=== PATIENT | female | born 1950 | race Hispanic/Latino ===

== ENCOUNTER → 2018-05-22 | Outpatient (CLI) | payer MEDICARE | END | disposition home or self-care (01) | LOC: RAH 13:35 | PROVIDERS: ATTEND Internal Medicine | DX: M47.896 Other spondylosis, lumbar region (principal) | CPT/HCPCS: 72100 ==

== ENCOUNTER 2018-08-01 09:01 | Emergency (ER) | payer MEDICARE ==
[2018-08-01] MEDS ORDERED: ASPIRIN 325 MG TABLET ONE (09:40)
[2018-08-01] MEDS ORDERED: KETOROLAC TROMETHAMINE 30MG/ML ONE (09:41)
[2018-08-01 09:52] LABS: BASOPHILS % (AUTO) 0.6 % (0.0-5.0); EOSINOPHILS % (AUTO) 2.6 % (0.0-8.0); HEMATOCRIT 44.5 % (36-48); LYMPHOCYTES % (AUTO) 27.6 % (21.0-51.0); MEAN CORPUSCULAR HEMOGLOBIN 29.1 pg (27.0-33.0); MEAN CORPUSCULAR HGB CONC 32.7 g/dL (32.0-36.0); MEAN CORPUSCULAR VOLUME 88.9 fL (79-99); MONOCYTES % (AUTO) 8.3 % (3.0-13.0); NEUTROPHILS % (AUTO) 60.9 % (40.0-77.0); PLATELET COUNT (AUTO) 241 K/uL (130-400); RED BLOOD CELL COUNT(AUTO) 5.01 MIL/uL (4.00-5.50); RED CELL DISTRIBUTION WIDTH 13.3 % (11.0-15.5); WHITE BLOOD COUNT (AUTO) 7.8 K/uL (4.8-10.8)
[2018-08-01 10:00] LABS: CREATININE 0.7 mg/dL (0.5-1.5); POTASSIUM 4.2 mmol/L (3.5-5.1)
[2018-08-01 10:15] LABS: ALBUMIN 3.8 g/dL (3.5-5.0); BILIRUBIN,TOTAL 0.6 mg/dL (0.2-1.0); CREATINE KINASE MB 0.5 ng/mL (0.5-3.6); TOTAL PROTEIN, SERUM 7.6 g/dL (6.0-8.3)
[2018-08-01 10:20] LABS: B-TYPE NATRIURETIC PEPTIDE 88 pg/mL (0-100)
[2018-08-01] MEDS ORDERED: IOHEXOL-350 75 ML VIAL IV ONE (11:51)
== END 2018-08-01 13:13 | disposition home or self-care (01) ==
LOC: EDH 09:01
DX: R07.89 Other chest pain (principal); E11.9 Type 2 diabetes mellitus without complications; K21.9 Gastro-esophageal reflux disease without esophagitis; E78.5 Hyperlipidemia, unspecified; I10 Essential (primary) hypertension; Z85.3 Personal history of malignant neoplasm of breast
CPT/HCPCS: 36415; 71045; 71275; 80053; 82550; 82553; 83880; 84484; 85025; 85378; 93005; 94761; 96374; 99285; J1885; Q9967

== ENCOUNTER → 2018-12-29 | Outpatient (CLI) | payer OTHER, MEDICARE | END | disposition home or self-care (01) | LOC: LAB 09:31 | PROVIDERS: ATTEND Internal Medicine | DX: M79.605 Pain in left leg (principal); Z85.3 Personal history of malignant neoplasm of breast | CPT/HCPCS: 73590 ==

== ENCOUNTER → 2019-07-15 | Outpatient (CLI) | payer OTHER, MEDICARE | END | disposition home or self-care (01) | LOC: RAH 11:04 | PROVIDERS: ATTEND Internal Medicine | DX: M19.011 Primary osteoarthritis, right shoulder (principal) | CPT/HCPCS: 73030 ==

== ENCOUNTER 2021-03-17 17:14 | Emergency (ER) | payer OTHER, MEDICARE ==
[2021-03-17] MEDS ORDERED: KETOROLAC TROMETHAMINE 30MG/ML ONE (17:56)
[2021-03-17] MEDS ORDERED: HYDROCODONE/ACETAMINOPHEN 10/325 MG TAB ONE (17:56)
== END 2021-03-17 18:16 | disposition home or self-care (01) ==
LOC: EDH 17:14
DX: M17.12 Unilateral primary osteoarthritis, left knee (principal); M25.562 Pain in left knee; E11.9 Type 2 diabetes mellitus without complications; K21.9 Gastro-esophageal reflux disease without esophagitis; E78.5 Hyperlipidemia, unspecified; I10 Essential (primary) hypertension
CPT/HCPCS: 73562; 96372; 99283; J1885

== ENCOUNTER → 2021-04-20 | Outpatient (CLI) | payer OTHER, MEDICARE | END | disposition home or self-care (01) | LOC: RAH 08:21 | PROVIDERS: ATTEND Internal Medicine | DX: R60.0 Localized edema (principal); M71.22 Synovial cyst of popliteal space [Baker], left knee | CPT/HCPCS: 93971 ==

== ENCOUNTER → 2021-04-21 | Outpatient (CLI) | payer OTHER, MEDICARE | END | disposition home or self-care (01) | LOC: RAH 11:39 | PROVIDERS: ATTEND Internal Medicine | DX: M71.22 Synovial cyst of popliteal space [Baker], left knee (principal); M17.12 Unilateral primary osteoarthritis, left knee; M25.762 Osteophyte, left knee | CPT/HCPCS: 73562 ==

== ENCOUNTER → 2023-11-26 | Outpatient (CLI) | payer OTHER, MEDICARE | END | disposition home or self-care (01) | LOC: RAH 09:37 | PROVIDERS: ATTEND Internal Medicine | DX: R05.3 Chronic cough (principal) | CPT/HCPCS: 71047 ==

== ENCOUNTER 2024-07-30 15:13 | Emergency (ER) | payer OTHER, MEDICARE ==
[~2024-07-30] VITALS: Ht 162.6 cm; Wt 72.6 kg
[2024-07-30 16:08] LABS: BASOPHILS # (AUTO) 0.01 K/uL (0.00-0.20); BASOPHILS % (AUTO) 0.1 % (0.0-5.0); EOSINOPHILS # (AUTO) 0.02 K/uL (0.00-0.70); EOSINOPHILS % (AUTO) 0.2 % (0.0-8.0); HEMATOCRIT 39.8 % (36-48); IMMATURE GRANULOCYTE ABSOLUTE 0.18 K/uL (0-1); LYMPHOCYTES # (AUTO) 2.2 K/uL (1.0-4.8); LYMPHOCYTES % (AUTO) 25.9 % (21.0-51.0); MEAN CORPUSCULAR HEMOGLOBIN 30.5 pg (27.0-33.0); MEAN CORPUSCULAR HGB CONC 33.4 g/dL (32.0-36.0); MEAN CORPUSCULAR VOLUME 91.3 fL (79-99); MONOCYTES # (AUTO) 1.4 K/uL (0.1-1.0); MONOCYTES % (AUTO) 15.8 % (3.0-13.0); NEUTROPHILS # (AUTO) 4.8 K/uL (1.8-7.7); NEUTROPHILS % (AUTO) 55.9 % (40.0-77.0); PLATELET COUNT (AUTO) 140 K/uL (130-400); RED BLOOD CELL COUNT(AUTO) 4.36 MIL/uL (4.00-5.50); RED CELL DISTRIBUTION WIDTH 13.6 % (11.0-15.5); WHITE BLOOD COUNT (AUTO) 8.6 K/uL (4.8-10.8)
[2024-07-30 16:18] LABS: CREATININE 0.8 mg/dL (0.5-1.0); POTASSIUM 3.9 mmol/L (3.5-5.1)
[2024-07-30 18:13] VITALS: BP 158/80; PULSE 70; RESP 16; TEMP 98; O2SAT 98
== END 2024-07-30 18:15 | disposition home or self-care (01) ==
LOC: EDH 15:13
DX: E11.65 Type 2 diabetes mellitus with hyperglycemia (principal); I10 Essential (primary) hypertension; E11.40 Type 2 diabetes mellitus with diabetic neuropathy, unspecified; E78.00 Pure hypercholesterolemia, unspecified; R20.2 Paresthesia of skin; Z98.890 Other specified postprocedural states
CPT/HCPCS: 36415; 80048; 84484; 85025; 93005

== ENCOUNTER → 2024-08-27 | Outpatient (CLI) | payer OTHER, MEDICARE | END | disposition home or self-care (01) | LOC: RAH 12:59 | PROVIDERS: ATTEND Internal Medicine | DX: R00.0 Tachycardia, unspecified (principal); R06.09 Other forms of dyspnea | CPT/HCPCS: 93306; 93356 ==

== ENCOUNTER → 2024-09-14 | Outpatient (CLI) | payer OTHER, MEDICARE ==
[2024-09-14 16:58] LABS: ALBUMIN 3.8 g/dL (3.5-5.0); BILIRUBIN,TOTAL 0.4 mg/dL (0.2-1.0); CREATININE 0.9 mg/dL (0.5-1.0); POTASSIUM 5.1 mmol/L (3.5-5.1); TOTAL PROTEIN, SERUM 7.6 g/dL (6.0-8.3)
== END | disposition home or self-care (01) ==
LOC: LAB 13:34
PROVIDERS: ATTEND Student in an Organized Health Care Education/Training Program
DX: R00.2 Palpitations (principal)
CPT/HCPCS: 36415; 80053

== ENCOUNTER → 2024-09-30 | Outpatient (CLI) | payer OTHER, MEDICARE ==
[~2024-09-30] MED LIST: IOHEXOL 350 MG/ML 100ML INFUS..BTL IV ONE
--- NOTE | 2024-09-30 10:43 | HMCIMG ---
CT CARDIAC ANGIO W/CONT. CCTA REASON: CHEST PAIN COMPARISON: None TECHNIQUE: Images are obtained through the heart in the axial plane before and during bolus IV contrast infusion, 100 cc Omnipaque 350. 2-D and 3-D multiplanar reconstruction images were then performed. The injection had to be repeated once due to motion artifact on the first sequence, total contrast volume was 200 cc. FINDINGS: This dictation is for the noncardiac findings only. Cardiac and coronary artery findings are reported separately. Visualized portions of the lungs are clear. There is normal-appearing pulmonary interstitium. There is no hilar or mediastinal lymphadenopathy. Chest wall structures appear unremarkable. IMPRESSION: 1. Unremarkable noncardiac portions of CT cardiac angiography.
== END | disposition home or self-care (01) ==
LOC: RAH 07:21
PROVIDERS: ATTEND Student in an Organized Health Care Education/Training Program
DX: R07.9 Chest pain, unspecified (principal)
CPT/HCPCS: 75574; Q9967

== ENCOUNTER → 2024-11-16 | Outpatient (CLI) | payer OTHER, MEDICARE ==
[2024-11-16 12:43] LABS: CHOLESTEROL 144 mg/dL (<200); HDL CHOLESTEROL 46 mg/dL (35-85); LDL DIRECT 95 mg/dL (0-99); TRIGLYCERIDES 77 mg/dL (30-200)
== END | disposition home or self-care (01) ==
LOC: LAB 08:57
PROVIDERS: ATTEND Student in an Organized Health Care Education/Training Program
DX: E78.2 Mixed hyperlipidemia (principal)
CPT/HCPCS: 36415; 80061

== ENCOUNTER 2024-12-12 12:16 | Emergency (ER) | payer OTHER, MEDICARE ==
[~2024-12-12] VITALS: Ht 149.9 cm; Wt 66.7 kg
--- NOTE | 2024-12-12 12:51 | ERN ---
General Chief Complaint: Generalized Body Aches Stated Complaint: BODY ACHES Time Seen by MD: 12:19 History of Present Illness Initial Comments 74-year-old female history of osteoarthritis presents for right shoulder pain right wrist pain and bilateral hip pain. Patient reports she was has been arthritis flare-ups recently. She has been taking Tylenol. She has been to her PCP and received injections which were briefly resolve his symptoms but they have returned. She denies any falls or injuries. She has been worked up for this in the past. She denies any systemic signs or symptoms. Allergies: Coded Allergies: No Known Allergies (Unverified Allergy, Unknown, 12/12/24) Past Medical History Past Medical History: No Pertinent History, Cancer Past Surgical History: Other Surgical History Other: LT MASTECTOMY Female( History) History: Not Applicable ROS Dictation CONSTITUTIONAL: No chills, no fever, no weakness, no diaphoresis, no malaise. HEAD/FACE: No signs of trauma. EENT: No eye pain, no blurred vision, no tearing, no double vision, no ear pain, no ear discharge, no nose pain, no nasal congestion, no throat pain, no throat swelling, no mouth pain. RESPIRATORY: No cough, no orthopnea, no SOB, no stridor, no wheezing. CARDIOVASCULAR: No chest pain, no edema, no palpitations, no syncope. GASTROINTESTINAL/ABDOMINAL: No abdominal pain, no constipation, no diarrhea, no nausea, no vomiting. GENITOURINARY: No abnormal discharge, no dysuria, no frequent urination, no hematuria. No complaints of pain in the genitals. MUSCULOSKELETAL: Joint pain INTEGUMENTARY: No change in color, no change in hair/nails, no dryness, no lesion, no lumps, no rash. NEUROLOGICAL/PSYCH: No anxiety, not depressed, no emotional problem, no headache, no numbness, no pre-existing deficit, no history of seizures, no tremors, no weakness. HEMATOLOGIC/LYMPHATIC: Not anemic, no history of blood clots, no apparent bleeding, no bruising, glands not swollen. All Systems Negative, Except as Noted. Physical Exam Physical Exam Dictation VITAL SIGNS: Reviewed. GENERAL APPEARANCE: Alert, oriented x3, no acute distress. HEAD AND FACE: Non-traumatic. EYES: PERRL, pink conjunctivas, eyelid no trauma, anterior chamber clear. EARS: Pinnas intact and no signs of trauma or erythema. Ear canals clear and no discharge. TMs no erythema. NOSE: No discharge, no bleeding. OROPHARYNX: Mouth normal, teeth no caries, tongue pink. Pharynx clear, no erythema. Tonsils no exudates, no abscesses noted. Mucous membrane moist. NECK: Supple, non-tender, no thyromegaly, no masses, no JVD, no bruits. BREAST: Deferred. CHEST: No tenderness, no crepitus, no paradoxical movement, no retractions. LUNGS: Clear, well-ventilated, symmetric, no rales, no wheezing, no rhonchi, no stridor, good breath sounds bilaterally. HEART: Regular rate, regular rhythm, no murmur, no gallops. VASCULAR: No peripheral edema. ABDOMEN: Soft, positive bowel sounds, nondistended, no guarding, nontender, no rebound, no masses no hepatomegaly, no splenomegaly, no Harmon's sign, no hernias. RECTAL: Deferred. GENITAL: Deferred. NEUROLOGICAL: Normal speech, gross motor function intact, gross sensory function intact. MUSCULOSKELETAL: Neck nontender, full range of motion, back nontender, full range of motion. EXTREMITIES: Nontender, full range of motion. SKIN: Color pink, dry, no turgor, no rash, no lacerations, no abrasions, no contusions. LYMPHATICS: Deferred. MDM CC: Joint pain, mostly in her right shoulder, right wrist bilateral hips. Historian: Patient Comorbidities: Advanced age, osteoarthritis, breast cancer status post mastectomy Limitations by social determinants of health: None differential diagnosis: Your osteoarthritis No labs or imaging indicated Clinical exam is consistent with arthritis. Strong extend the shoulder. Given an IM Toradol and p.o. Hudson. We will DC with meloxicam recommend Tylenol recommend Voltaren gel and lidocaine patches in capsaicin as needed. Recommend follow up with the PCP. ED Course Orders Procedure Category Date Status Time Ketorolac PHA 12/12/24 In Process Tromethamine 15mg/Ml 13:00 Hydrocodone/Apap PHA 12/12/24 In Process 5/325 (Hudson 5/325mg) 13:00 Current Medications Medications (Trade) Dose Ordered Sig/Esteban Route PRN Reason Start Time Stop Time Status Last Admin Dose Admin Acetaminophen/ Hydrocodone Bitart (NORco 5/325MG) 1 tab ONCE ONCE PO 12/12/24 13:00 12/12/24 13:01 Ketorolac Tromethamine (toRADol) 15 mg ONCE ONCE IM 12/12/24 13:00 12/12/24 13:01 Vital Signs Date Time Temp Pulse Resp B/P (MAP) Pulse Ox O2 Delivery O2 Flow Rate FiO2 12/12/24 12:41 97.9 98 18 166/63 97 Room Air DX & DISP Disposition: Discharge Departure Impression: Primary Impression: Osteoarthritis Condition: Stable Scripts Diclofenac Sodium (Voltaren Arthritis Pain) 1 % Gel..gram. 20 GM TP TID for pain, #1 TUB Prov: DARREN FERRER DO 12/12/24 Meloxicam (Meloxicam) 15 Mg Tablet 15 MG PO DAILY PRN for PAIN for 20 Days, #20 TAB Prov: DARREN FERRER DO 12/12/24 Additional Instructions: Your symptoms are consistent with osteoarthritis. You received a dose of Toradol, which is a nonsteroidal anti-inflammatory medication. You also received a Hudson tab. Continue taking 1000 mg of Tylenol up to 4 times per day. This medication is [id number]. I have prescribed meloxicam, which is an anti-inflammatory pain medication. Take this once per day as needed. I recommend Voltaren gel. You can apply this over the joints up to 3 times per day as needed. You can apply warm compresses for stiffness to the affected joints or cold packs for inflammation. Please follow up with the primary doctor. Return to the emergency department as needed. Referrals: JOSE LY MD (PCP) DARREN FERRER DO Dec 12, 2024 12:51
[2024-12-12] MEDS ORDERED: MELO-108 PO (12:55)
[2024-12-12] MEDS ORDERED: DICL20GE TP (12:55)
[2024-12-12] MEDS: ketOROlac 15MG/ML VIAL (15MG/ML) IM ONE (13:00)
[2024-12-12] MEDS: HYDROcodone/APAP 5/325 1 TAB TABLET PO ONE (15:10)
--- NOTE | 2024-12-12 15:13 | NUR ---
ASSUMED CARE AT THIS TIME
[2024-12-12 15:25] VITALS: BP 150/67; PULSE 89; RESP 18; TEMP 98.2; O2SAT 98
== END 2024-12-12 15:26 | disposition home or self-care (01) ==
LOC: EDH 12:16
DX: M19.90 Unspecified osteoarthritis, unspecified site (principal); Z90.12 Acquired absence of left breast and nipple; Z98.890 Other specified postprocedural states
CPT/HCPCS: 99283; 96372; J1885

== ENCOUNTER 2025-01-04 16:46 | Emergency (ER) | payer OTHER, MEDICARE ==
[~2025-01-04] VITALS: Ht 152.4 cm; Wt 65.3 kg
[~2025-01-04 16:46] MED LIST changes: +DICL20GE TP; -IOHEXOL 350 MG/ML 100ML INFUS..BTL IV ONE; +MELO-108 PO
--- NOTE | 2025-01-04 17:27 | EKG ---
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
--- NOTE | 2025-01-04 17:34 | ERN ---
ED Note History of Present Illness Stated Complaint: VOMIT Chief Complaint: Nausea,Vomiting,Diarrhea Time Seen by MD: 16:50 Dictation: The patient is a 74-year-old female with a medical history of type 2 diabetes mellitus and breast cancer, for which she underwent a mastectomy, presented to the emergency department with primary complaints of vomiting that began this afternoon, accompanied by weakness. The patient reported vomiting five times today, with associated nausea. She described experiencing cramping abdominal pain during episodes of vomiting, as well as headaches. She denied experiencing diarrhea, dizziness, lightheadedness, hematemesis, or hematochezia. Denies any history of similar complaints before. Additionally, she stated that she has not consumed spicy foods or eaten outside. A colonoscopy performed a month ago yielded normal results. Allergies: Coded Allergies: No Known Allergies (Unverified Allergy, Unknown, 12/12/24) Home Meds Active Scripts Diclofenac Sodium (Voltaren Arthritis Pain) 1 % Gel..gram., 20 GM TP TID for pain, #1 TUB Prov:DARREN FERRER DO 12/12/24 Meloxicam (Meloxicam) 15 Mg Tablet, 15 MG PO DAILY PRN for PAIN for 20 Days, #20 TAB Prov:DARREN FERRER DO 12/12/24 Past Medical History Past Medical History: No Pertinent History, Arthritis, Cancer, Diabetes-Type II, Hypertension Surgical History: Other Surgical History Other: LT MASTECTOMY History: Not Applicable Review of System Dictation REVIEW OF SYSTEMS CONSTITUTIONAL: Generalized bodyaches, Denies fevers, chills, or night sweats. No unintentional weight loss reported. NEUROLOGICAL: Denies headache, amaurosis fugax, motor weakness, sensory deficit, vertigo/spinning sensation, gait abnormalities, or tremors. ENT: No hearing loss, otalgia, otorrhea, rhinitis, rhinorrhea, hoarseness, or sore throat. CARDIOVASCULAR: Denies any exertional angina, dyspnea on exertion, orthopnea, paroxysmal nocturnal dyspnea, palpitations, life-threatening arrhythmias, claudication. PULMONARY: Denies any shortness of breath, cough, phlegm/sputum, hemoptysis, pleuritic chest pain. SLEEP: Denies morning headaches, daytime somnolence or napping. Denies difficulty falling asleep, staying asleep, waking from sleep. Denies knowledge of snoring. GASTROINTESTINAL: c/o nausea, vomiting, Denies any type of dysphagia to either liquids or solids. Denies pyrosis, early satiety, abdominal pain, diarrhea, constipation, or changes in stool consistency or caliber. Denies coffee-ground emesis, hematemesis, hematochezia, or melanotic stools. GENITOURINARY: Denies frequency, urgency, nocturia, hematuria or incontinence (Storage/Irritative symptoms.) Low urinary stream, straining to void, urinary intermittency or hesitancy, splitting of the voiding stream, terminal dribbling. ENDOCRINOLOGIC: Denies polyuria, polydipsia, polyphagia or heat/cold intolerances. HEMATOLOGIC: Denies thrombophilia/previous clots, or coagulopathy/bleeding disorders. ONCOLOGIC: Denies personal history of malignancy. DERMATOLOGIC: Denies rashes or pruritus. PSYCHIATRIC: Denies any suicidal or homicidal ideation. Denies hallucinations. Initial Vital Sign VS Vital Signs Date Time Temp Pulse Resp B/P (MAP) Pulse Ox O2 Delivery O2 Flow Rate FiO2 01/04/25 16:55 98.6 129 22 129/76 Room Air 0 Physical Exam Dictation PHYSICAL EXAM GENERAL APPEARANCE: The patient is awake, alert, and oriented, appears in some distress. NEUROLOGICAL: Cranial nerves II-XII grossly intact. Motor is 5/5 in bilateral upper and lower extremities proximal to distal. No sensory deficits. HEENT: Face is symmetric. Pupils are equal and reactive. Extraocular movements are intact. NECK: Supple. No JVD. No thyromegaly. No submental, submandibular, pre- /postauricular, occipital or supraclavicular lymphadenopathy. CHEST: Normal chest expansion. No Telemetry. LUNGS: Absence of any rales, rhonchi or any wheezing. CARDIOVASCULAR: Regular. S1 and S2 normal. No appreciable rubs, murmurs or gallops. ABDOMEN: Soft, nontender, and nondistended. There is no rebound, voluntary guarding, or rigidity. : Deferred. No Girard. EXTREMITIES: Non-edematous and not cyanotic. No clubbing. Good capillary refill. SKIN: No skin breakdown. Results (Laboratory/Radiology) Laboratory/Radiology Laboratory Tests Test 01/04/25 17:35 White Blood Count 13.0 K/uL (4.8-10.8) H Red Blood Count 4.46 MIL/uL (4.00-5.50) Hemoglobin 12.5 g/dL (12.0-16.0) Hematocrit 38.3 % (36-48) Mean Corpuscular Volume 85.9 fL (79-99) Mean Corpuscular Hemoglobin 28.0 pg (27.0-33.0) Mean Corpuscular Hemoglobin Concent 32.6 g/dL (32.0-36.0) Red Cell Distribution Width 13.4 % (11.0-15.5) Platelet Count 334 K/uL (130-400) Mean Platelet Volume 10.8 fL (7.5-10.5) H Immature Granulocyte % (Auto) 1.4 % (0-1) H Neutrophils (%) (Auto) 63.1 % (40.0-77.0) Lymphocytes (%) (Auto) 16.3 % (21.0-51.0) L Monocytes (%) (Auto) 15.9 % (3.0-13.0) H Eosinophils (%) (Auto) 2.8 % (0.0-8.0) Basophils (%) (Auto) 0.5 % (0.0-5.0) Neutrophils # (Auto) 8.2 K/uL (1.8-7.7) H Lymphocytes # (Auto) 2.1 K/uL (1.0-4.8) Monocytes # (Auto) 2.1 K/uL (0.1-1.0) H Eosinophils # (Auto) 0.36 K/uL (0.00-0.70) Basophils # (Auto) 0.06 K/uL (0.00-0.20) Absolute Immature Granulocyte (auto 0.18 K/uL (0-1) Nucleated Red Blood Cells 0.0 % (0.0-0.19) White Cell Morphology Comment See comments D-Dimer Quantitative (PE/DVT) 2110 ng/mL (0-500) *H Sodium Level 135 mmol/L (136-145) L Potassium Level 3.9 mmol/L (3.5-5.1) Chloride Level 99 mmol/L (101-111) L Carbon Dioxide Level 25 mmol/L (21-32) Blood Urea Nitrogen 10 mg/dL (7-18) Creatinine 0.8 mg/dL (0.5-1.0) Glomerular Filtration Rate Calc 77 mL/min (>90) Random Glucose 182 mg/dL (70-105) H Total Calcium 10.1 mg/dL (8.5-10.1) Total Bilirubin 0.4 mg/dL (0.2-1.0) Direct Bilirubin 0.1 mg/dL (0.0-0.3) Aspartate Amino Transf (AST/SGOT) 15 U/L (10-37) Alanine Aminotransferase (ALT/SGPT) 20 U/L (12-78) Alkaline Phosphatase 70 U/L (50-136) Total Creatine Kinase 31 U/L (21-232) # Troponin I High Sensitivity < 4 ng/L (4-50) L Total Protein 7.5 g/dL (6.0-8.3) Albumin 3.6 g/dL (3.5-5.0) Lipase 19 U/L (16-77) Labs Reviewed?: Yes EKG Comment: [place] 139 Sinus tachycardia Probable LVH with secondary repolarization abnormalities [place] 133 QT 283 Ultrasound Comment: PATIENT: KAYLAN KELLER MR#: [id number] : 1950 SEX: F AGE: 74 LOCATION: ED ORDER 184 STATUS: REG REPORT#: [id number] SERVICE 38 REASON: Elevated D-dimer ORDERING PHYSICIAN: JAIRO BURR MD PROCEDURE: VENOUS NED - US VENOUS DOPPLER BILATERAL US VENOUS DOPPLER BILATERAL REASON: Elevated D-dimer COMPARISON: None Technique: Bilateral venous doppler ultrasound was performed with spectral analysis and color flow imaging technique. FINDINGS: There is a normal appearance of the common femoral, deep femoral, the profunda femoris and popliteal veins. Proximal calf veins appear normal as well. There is normal response to compression and augmentation. There is no evidence of deep venous thrombosis. IMPRESSION: Normal bilateral lower extremity venous Doppler ultrasound. DICTATED BY: LYNN DAMON MD DATE: 01/04/251936 ELECTRONICALLY SIGNED BY: LYNN DAMON MD DATE: 01/04/251939 CT Scan Comment: PATIENT: KAYLAN KELLER MR#: [id number] : 1950 SEX: F AGE: 74 LOCATION: EDH ORDER 23 STATUS: REG ER REPORT#: [id number] SERVICE 22 REASON: Elevated D-dimer ORDERING PHYSICIAN: JAIRO BURR MD PROCEDURE: CHES PE - CT CHEST PE PROTOCOL WWO CONT CT CHEST PE PROTOCOL WWO CONT HISTORY: Elevated d-dimer COMPARISON: None TECHNIQUE: CT angiography of the chest was performed. The study was performed using angiographic technique with maximum intensity projection reconstruction images. Patient was given 35 cc of Omnipaque through intravenous route. FINDINGS: No CT evidence of filling defect is seen to suggest pulmonary embolus. No CT evidence of aortic dissection is seen. No evidence of parenchymal disease is seen. No CT evidence of pleural effusion or pericardial effusion is seen. The heart is enlarged. Fatty changes of the liver are noted. Gallbladder is distended. No evidence of adrenal mass is seen. Degenerative changes of the spine are noted. IMPRESSION: 1. No CT evidence of acute pulmonary embolus is seen. CT was performed with one or more following dose reduction techniques: automated exposure control, adjustment of the mA and kv according to patient's size, or use of a iterative reconstruction technique. DICTATED BY: KLARISSA TY MD DATE: 01/04/252257 ELECTRONICALLY SIGNED BY: KLARISSA TY MD DATE: 01/04/252303 REASON: Nausea, Vomiting ORDERING PHYSICIAN: JAIRO BURR MD PROCEDURE: ABD PEL WO - CT ABDOMEN/PELVIS W/O CONTRAST CT ABDOMEN/PELVIS W/O CONTRAST REASON: Nausea, Vomiting COMPARISON: 08/17/2017 FINDINGS: Lung bases are clear. There are no focal liver lesions. There are normal-appearing kidneys.. Spleen and pancreas appear unremarkable. The gallbladder appears normal as well. There are mildly prominent fluid-filled loops of small bowel without transition zone. There is some fluid in the colon as well. These findings appear consistent with gastroenteritis. There is no evidence of obstruction. The appendix was not separately identified.. There is no secondary evidence of acute appendicitis such as appendicolith or phlegmon. There is no evidence of free fluid or intraperitoneal air. There are no focal fluid collections. Aorta and retroperitoneum appear normal as do pelvic soft tissue structures. The anterior abdominal wall is intact. Osseous structures appear unremarkable. IMPRESSION: 1. Mildly prominent fluid-filled loops of large and small bowel, nonspecific, most consistent with gastroenteritis. 2. No evidence of obstruction. CT was performed with one or more following dose reduction techniques: automated exposure control, adjustment of the mA and kv according to patient's size, or use of a iterative reconstruction technique. DICTATED BY: LYNN DAMON MD DATE: 01/04/251841 ELECTRONICALLY SIGNED BY: LYNN DAMON MD DATE: 01/04/251845 ED Course ED Course Orders Procedure Category Date Status Time 12 Lead Ekg Tracing- EKG 01/04/25 Complete Technical 16:58 Cbc With Differential LAB 01/04/25 Complete 17:10 Basic Metabolic Panel LAB 01/04/25 Complete 17:10 Urinalysis Profile LAB 01/04/25 Logged 17:10 Creatine Kinase, Total LAB 01/04/25 Complete 17:10 D-Dimer LAB 01/04/25 Complete 17:19 Troponin I High LAB 01/04/25 Complete Sensitivity 17:19 Ct Abdomen/Pelvis W/O CT 01/04/25 Resulted Contrast 17:19 0.9% Nacl 500ml PHA 01/04/25 Complete Iv.Soln (Ns 500ml 17:30 Ondansetron 4mg Inj PHA 01/04/25 Complete (Zofran 4mg Inj) 17:30 Lidocaine Hcl 2% PHA 01/04/25 Complete Viscous (Lidocaine Hcl 17:30 Mag/Alum/Simeth 30ml PHA 01/04/25 Complete (Maalox Plus 30ml) 17:30 Dicyclomine Hcl PHA 01/04/25 Complete (Bentyl 10mg/5ml 17:30 Lipase LAB 01/04/25 Complete 18:12 Hepatic Function Panel LAB 01/04/25 Complete 18:12 Ct Chest Pe Protocol CT 01/04/25 Resulted Wwo Cont 18:23 Us Venous Doppler US 01/04/25 Resulted Bilateral 18:39 Iohexol (Omnipaque) PHA 01/04/25 Complete 18:56 Ondansetron 4mg Inj PHA 01/04/25 Complete (Zofran 4mg Inj) 23:10 Mag/Alum/Simeth 30ml PHA 01/04/25 Complete (Maalox Plus 30ml) 23:10 0.9% Nacl 500ml PHA 01/04/25 Complete Iv.Soln (Ns 500ml 23:10 Dicyclomine Hcl PHA 01/04/25 Complete (Bentyl 10mg/5ml 23:10 Lidocaine Hcl 2% PHA 01/04/25 Complete Viscous (Lidocaine Hcl 23:10 Current Medications Medications (Trade) Dose Ordered Sig/Esteban Route PRN Reason Start Time Stop Time Status Last Admin Dose Admin Al Hydroxide/Mg Hydroxide (MAALox PLUS 30ML) 30 ml ONCE ONCE PO 01/04/25 17:30 01/04/25 17:31 DC 01/04/25 23:11 Al Hydroxide/Mg Hydroxide (MAALox PLUS 30ML) 30 ml STK-MED ONCE .ROUTE 01/04/25 23:10 01/04/25 23:10 DC Dicyclomine HCl (Bentyl 10mg/5ml Syrup) 10 mg ONCE ONCE PO 01/04/25 17:30 01/04/25 17:31 DC 01/04/25 23:11 Dicyclomine HCl (Bentyl 10mg/5ml Syrup) 10 mg STK-MED ONCE PO 01/04/25 23:10 01/04/25 23:10 DC Iohexol (Omnipaque) 75 ml STK-MED ONCE IV 01/04/25 18:56 01/04/25 18:56 DC Lidocaine HCl (Lidocaine HCl 2% Viscous) 10 ml ONCE ONCE PO 01/04/25 17:30 01/04/25 17:31 DC 01/04/25 23:12 Lidocaine HCl (Lidocaine HCl 2% Viscous) 15 ml STK-MED ONCE .ROUTE 01/04/25 23:10 01/04/25 23:10 DC Ondansetron HCl (zoFRAN 4MG INJ) 4 mg ONCE ONCE IVP 01/04/25 17:30 01/04/25 17:31 DC 01/04/25 23:11 Ondansetron HCl (zoFRAN 4MG INJ) 4 mg STK-MED ONCE .ROUTE 01/04/25 23:10 01/04/25 23:10 DC Sodium Chloride 500 ml @ As Directed STK-MED ONCE IV 01/04/25 23:10 01/04/25 23:10 DC Sodium Chloride 500 ml @ 0 mls/hr ONCE ONCE IV 01/04/25 17:30 01/04/25 17:31 DC 01/04/25 23:12 Vital Signs Date Time Temp Pulse Resp B/P (MAP) Pulse Ox O2 Delivery O2 Flow Rate FiO2 01/04/25 16:55 98.6 129 22 129/76 Room Air 0 15:30 The patient was assessed in the emergency department hallway. She is seated in a wheelchair and appears to be in some distress. Typically, she is able to ambulate independently; however, due to vomiting, she is feeling weak and requires the use of the wheelchair. The patient speaks Omani, and the nurse assisted with translation. She presents with tachycardia and tachypnea, exhibiting a pulse rate of 129, a respiratory rate of 22, a temperature of 98.6F, and a blood pressure of 129/76, while breathing ambient air. The electrocardiogram indicated sinus tachycardia. We will proceed with ordering basic laboratory tests and a CT scan of the abdomen and pelvis to exclude any potential infectious processes. Based on the results of the laboratory tests and imaging studies, we will determine whether the patient necessitates inpatient hospitalization or emergency intervention. Continuous monitoring of the patient will be maintained. Medical Decision Making [facility] Differential diagnosis: Rationale: Tests considered and ordered secondary to shared decision making include: Previous outside records reviewed: Old ER visits. Risk of complication and/or morbidity or mortality of patient management: None Medications-Per medication reconciliation Need for hospitalization: Patient does not meet criteria for hospitalization. Need for emergency major/minor surgery: No There are no social concerns with this patient. Prescription drug management Prescriptions will include symptomatic care Patient's prior external medical records from other ER visits were reviewed by me as indicated. Prior testing and results from previous visits were reviewed. Prior tests were taken into account with medical decision making and resource utilization, independent historian/historians were used to obtain complete medical history. I independently interpreted the test that were performed, results were reviewed by me and considered findings on radiology if ordered. Patient signed out to me pending completion of evaluation. Patient did come in with episodes of vomiting. No diarrhea. CT abdomen shows likely britton roenteritis. However patient did have tachycardia and a positive D-dimer. Ultrasound of the legs shows no DVT. CT chest performed without PE. Continue supportive care. Discharged with Zofran. DX & DISP Disposition: Discharge Departure Impression: Primary Impression: Vomiting Condition: Stable Scripts Ondansetron (Ondansetron Odt) 4 Mg Tab.rapdis 1 TAB PO Q6HPRN PRN for nausea/vomiting for 4 Days, #16 TAB 0 Refills Prov: DOV CHIRINOS MD 01/04/25 Additional Instructions: Zofran as needed for nausea and vomiting Drink plenty of fluids Referrals: JOSE LY MD (PCP) I have reviewed, & agreed with my scribe's, documentation. I have reviewed the case, and I agree with, Diagnosis and Plan I have examined patient, & reviewed all documents, & agreed W/ the Diagnosis, and Plan JAIRO BURR MD Jan 04, 2025 17:34 DOV CHIRINOS MD Jan 04, 2025 23:23
[2025-01-04 17:49] LABS: BASOPHILS # (AUTO) 0.06 K/uL (0.00-0.20); BASOPHILS % (AUTO) 0.5 % (0.0-5.0); EOSINOPHILS # (AUTO) 0.36 K/uL (0.00-0.70); EOSINOPHILS % (AUTO) 2.8 % (0.0-8.0); HEMATOCRIT 38.3 % (36-48); IMMATURE GRANULOCYTE ABSOLUTE 0.18 K/uL (0-1); LYMPHOCYTES # (AUTO) 2.1 K/uL (1.0-4.8); LYMPHOCYTES % (AUTO) 16.3 % (21.0-51.0); MEAN CORPUSCULAR HGB CONC 32.6 g/dL (32.0-36.0); MEAN CORPUSCULAR VOLUME 85.9 fL (79-99); MONOCYTES # (AUTO) 2.1 K/uL (0.1-1.0); MONOCYTES % (AUTO) 15.9 % (3.0-13.0); NEUTROPHILS # (AUTO) 8.2 K/uL (1.8-7.7); NEUTROPHILS % (AUTO) 63.1 % (40.0-77.0); PLATELET COUNT (AUTO) 334 K/uL (130-400); RED BLOOD CELL COUNT(AUTO) 4.46 MIL/uL (4.00-5.50); RED CELL DISTRIBUTION WIDTH 13.4 % (11.0-15.5)
[2025-01-04 17:58] LABS: CREATININE 0.8 mg/dL (0.5-1.0); POTASSIUM 3.9 mmol/L (3.5-5.1)
[2025-01-04 18:34] LABS: ALBUMIN 3.6 g/dL (3.5-5.0); BILIRUBIN,DIRECT 0.1 mg/dL (0.0-0.3); BILIRUBIN,TOTAL 0.4 mg/dL (0.2-1.0); TOTAL PROTEIN, SERUM 7.5 g/dL (6.0-8.3)
--- NOTE | 2025-01-04 18:46 | HMCIMG ---
CT ABDOMEN/PELVIS W/O CONTRAST REASON: Nausea, Vomiting COMPARISON: 08/17/2017 FINDINGS: Lung bases are clear. There are no focal liver lesions. There are normal-appearing kidneys.. Spleen and pancreas appear unremarkable. The gallbladder appears normal as well. There are mildly prominent fluid-filled loops of small bowel without transition zone. There is some fluid in the colon as well. These findings appear consistent with gastroenteritis. There is no evidence of obstruction. The appendix was not separately identified.. There is no secondary evidence of acute appendicitis such as appendicolith or phlegmon. There is no evidence of free fluid or intraperitoneal air. There are no focal fluid collections. Aorta and retroperitoneum appear normal as do pelvic soft tissue structures. The anterior abdominal wall is intact. Osseous structures appear unremarkable. IMPRESSION: 1. Mildly prominent fluid-filled loops of large and small bowel, nonspecific, most consistent with gastroenteritis. 2. No evidence of obstruction. CT was performed with one or more following dose reduction techniques: automated exposure control, adjustment of the mA and kv according to patient's size, or use of a iterative reconstruction technique.
[2025-01-04] MEDS ORDERED: IOHEXOL-350 75 ML VIAL IV ONE (18:56)
--- NOTE | 2025-01-04 19:40 | HMCIMG ---
US VENOUS DOPPLER BILATERAL REASON: Elevated D-dimer COMPARISON: None Technique: Bilateral venous doppler ultrasound was performed with spectral analysis and color flow imaging technique. FINDINGS: There is a normal appearance of the common femoral, deep femoral, the profunda femoris and popliteal veins. Proximal calf veins appear normal as well. There is normal response to compression and augmentation. There is no evidence of deep venous thrombosis. IMPRESSION: Normal bilateral lower extremity venous Doppler ultrasound.
--- NOTE | 2025-01-04 23:03 | HMCIMG ---
CT CHEST PE PROTOCOL WWO CONT HISTORY: Elevated d-dimer COMPARISON: None TECHNIQUE: CT angiography of the chest was performed. The study was performed using angiographic technique with maximum intensity projection reconstruction images. Patient was given 35 cc of Omnipaque through intravenous route. FINDINGS: No CT evidence of filling defect is seen to suggest pulmonary embolus. No CT evidence of aortic dissection is seen. No evidence of parenchymal disease is seen. No CT evidence of pleural effusion or pericardial effusion is seen. The heart is enlarged. Fatty changes of the liver are noted. Gallbladder is distended. No evidence of adrenal mass is seen. Degenerative changes of the spine are noted. IMPRESSION: 1. No CT evidence of acute pulmonary embolus is seen. CT was performed with one or more following dose reduction techniques: automated exposure control, adjustment of the mA and kv according to patient's size, or use of a iterative reconstruction technique.
[2025-01-04] MEDS: MAG/ALUM/SIMETH 30 ML UDCUP PO ONE (23:11)
[2025-01-04] MEDS: ondanSETRON 4MG INJ IVP ONE (23:11)
[2025-01-04] MEDS: DICYCLOMINE HCL 10 MG/5 ML ML PO ONE ×2 (23:11→23:13)
[2025-01-04] MEDS: ondanSETRON 4MG INJ ONE (23:12)
[2025-01-04] MEDS: MAG/ALUM/SIMETH 30 ML UDCUP ONE (23:12)
[2025-01-04] MEDS: LIDOCAINE HCL 2% VISCOUS 15 ML UDCUP PO ONE (23:12)
[2025-01-04] MEDS: 0.9% NACL 500ML IV.SOLN 500 ML IV ONE ×2 (23:12)
[2025-01-04] MEDS: LIDOCAINE HCL 2% VISCOUS 15 ML UDCUP ONE (23:12)
[2025-01-04 23:14] VITALS: BP 129/69; PULSE 98; RESP 20; TEMP 98.7; O2SAT 95
[2025-01-04] MEDS ORDERED: ONDA-243 PO (23:22)
== END 2025-01-04 23:37 | disposition home or self-care (01) ==
LOC: EDH 16:46
DX: R11.2 Nausea with vomiting, unspecified (principal); M79.662 Pain in left lower leg; M79.661 Pain in right lower leg; E11.9 Type 2 diabetes mellitus without complications; Z98.890 Other specified postprocedural states
CPT/HCPCS: 99285; 71270; 93970; 96374; 82550; 80076; 84484; 80048; 83690; 85025; 85378; 36415; 74176; 93005; J7040; J2405; Q9967